=== PATIENT | male | born 1975 | race Caucasian/White ===

== ENCOUNTER 2020-12-16 03:23 | Emergency (ER) | payer OTHER, SELFPAY ==
[2020-12-16 03:29] VITALS: BP 147/93; PULSE 90; RESP 17; TEMP 36.8; O2SAT 97; BMI 35.7
--- NOTE | 2020-12-16 03:37 | ECG_ITS ---
[facility] Test Date: 2020-12-16 Pat Name: Richie Wan Department: Room: Gender: Male [employer] Flu[employer] Handler: : [id number] Requested By: Humble Burris Order Number: [id number] Viola MD: Chelo Taylor M.D. Measurements Intervals Peck Rate: 95 P: 43 NC: 149 QRS: 12 QRSD: 111 T: 25 QT: 349 QTc: 439 Interpretive Statements SINUS RHYTHM LOW QRS VOLTAGE IN PRECORDIAL LEADS [QRS DEFLECTION < 1.0 mV IN CHEST LEADS] MODERATE INTRAVENTRICULAR CONDUCTION DELAY [110+ ms QRS DURATION] Compared to ECG 11/02/2018 09:16:30 Intraventricular conduction delay now present Electronically Signed On 12-16-2020 18:38:07 CDT by Chelo Taylor M.D. [id number]
--- NOTE | 2020-12-16 03:37 | XRR_ITS ---
PROCEDURE INFORMATION: Exam: XR Chest Exam date and time: 12/16/2020 3:39 AM Age: 45 years old Clinical indication: Pain; Chest pressure; Additional info: Chest pain TECHNIQUE: Imaging protocol: XR of the chest. Views: 1 view. COMPARISON: No relevant prior studies available. FINDINGS: Lungs: Unremarkable. No consolidation. Pleural spaces: Unremarkable. No pleural effusion. No pneumothorax. Heart/Mediastinum: Unremarkable. No cardiomegaly. Bones/joints: Unremarkable. XR/XR chest 1V portable [id number] IMPRESSION: No acute findings.
[2020-12-16 03:59] VITALS: BP 157/95; PULSE 87; RESP 19; O2SAT 96
[2020-12-16 04:21] LABS: Basophils % 0.3 %; Eosinophils # 0.2 10^3/uL (0.0-0.8); Eosinophils % 3.1 %; Hematocrit 45.6 % (42.0-52.0); Lymphocytes # 2.7 10^3/uL (0.8-4.8); Lymphocytes % 37.7 %; Mean Corpuscular HGB Conc 32.9 g/dL (30.0-36.0); Mean Corpuscular Hemoglobin 27.2 pg (28.0-34.0); Mean Corpuscular Volume 82.8 fL (80-94); Mean Platelet Volume 10.1 fL (7.4-10.4); Monocytes # 0.7 10^3/uL (0.2-0.9); Monocytes % 10.3 %; Neutrophils # 3.49 10^3/uL (1.8-7.7); Neutrophils % 48.5 %; Nucleated Red Blood Cells % 0 %; Platelet Count 179 10^3/cmm (130-400); Red Blood Count 5.51 10^6/uL (4.1-5.3); Red Cell Distribution Width 12.9 % (12.1-15.1); White Blood Count 7.2 10^3/uL (4.0-10.0)
[2020-12-16 04:33] VITALS: BP 123/93; PULSE 81; RESP 17; O2SAT 95
[2020-12-16 04:40] LABS: Troponin(5th) Baseline 6 ng/L (0-15)
[2020-12-16 04:42] LABS: Alanine Aminotransferase 36 U/L (0-41); Albumin Level 3.8 g/dL (3.5-5.2); Alkaline Phosphatase 91 IU/L (40-130); Anion Gap 12.9 (5-19); Aspartate Amino Transferase 28 U/L (0-40); Blood Urea Nitrogen 15 mg/dL (6-20); Calcium 8.2 mg/dL (8.5-10.5); Carbon Dioxide 25 mmol/L (22-29); Chloride 107 mmol/L (98-107); Globulin 2.1 g/dL (1.3-4.6); Glomerular Filtration Rate 71.8 mL/min (90-130); Glucose 134 mg/dL (65-115); Osmolality Calculated 295 mOsm/kg (285-295); Potassium 3.9 mmol/L (3.5-5.1); Sodium 141 mmol/L (136-145); Total Bilirubin 0.4 mg/dL (0.15-1.2); Total Protein 5.9 g/dL (6.6-8.7)
[2020-12-16 05:00] VITALS: BP 125/77; PULSE 81; RESP 17; O2SAT 95
--- NOTE | 2020-12-16 05:19 | W.ED.GENADLT ---
HPI - General Adult General: Chief complaint: General Medical Stated complaint: PAIN IN UPPER BACK AND SHOULDERS Time Seen by Provider: 12/16/20 03:37 History of Present Illness: HPI narrative: Patient is a well-appearing 45-year-old male seen for palpitations, left neck, jaw, and arm paresthesia, and hypertension which he experienced shortly after having sexual intercourse with his partner. He states that he has felt the same way several times when having sex over the last 4 years, but also he is awoken in a panic state having palpitations, tachycardia, and hypertension as well as sweating in the middle the night. He admits to having a high stress job and feeling anxiety from time to time. He has no history of heart disease, hypertension, diabetes, hypercholesterolemia, and does not have risk factors such as smoking or heavy drinking. At the time of my exam, his symptoms have all relieved spontaneously. He has no other acute complaints. Review of Systems General: Reports: 10 or more systems reviewed and unremarkable except in HPI and below Physical Exam Const: COMMON NORMALS: no acute distress, patient oriented x3 and alert HENMT: COMMON NORMALS: normocephalic and atraumatic HEAD & SCALP: normocephalic and atraumatic Eye: COMMON NORMALS: Equal, round and reactive pupils present, EOMs intact bilaterally and no scleral icterus PUPIL: Yes Equal, round and reactive pupils present Resp: COMMON NORMALS: normal respiratory effort and No retractions Cardio: COMMON NORMALS: regular rate, regular rhythm and No murmurs present (Cardio) RATE: regular rate RHYTHM: regular rhythm GI: COMMON NORMALS: Normal to inspection, nondistended, normoactive bowel sounds present, Soft to palpation and non-tender PALPATION: Yes Soft to palpation Neuro: COMMON NORMALS: patient oriented x3 SENSORIUM/ORIENTATION: Yes alert Skin: COMMON NORMALS: no rashes or lesions noted GENERAL SKIN EXAM: no rashes or lesions noted Course Vital Signs: Vital signs: Vital Signs Temperature 98.2 F 12/16/20 03:29 Pulse Rate 81 12/16/20 05:00 Respiratory Rate 17 12/16/20 05:00 Blood Pressure 125/77 12/16/20 05:00 Pulse Oximetry 95 12/16/20 05:00 MDM - General Adult MDM Narrative: Medical decision making narrative: By the time I was able to evaluate the patient, he was symptom-free and had completely stable vital signs. EKG shows no acute process. Troponin, CBC, CMP, chest x-ray are all unremarkable. I suspect there is a component of anxiety contributing to his symptoms and advised that he follow-up with primary care to discuss whether there are any medications which could help him should this symptom recur. He admits that he is at very high stress job and sometimes feels an inordinate amount of anxiety as a result. He will be discharged home in stable and improved condition with follow-up to primary care as needed. He knows he is always welcome back in the emergency department if his symptoms get worse before outpatient follow-up. Lab Data: Labs: Lab Results 12/16/20 12/16/20 12/16/20 Range/Units 04:08 04:08 04:08 WBC 7.2 (4.0-10.0) 10^3/ uL RBC 5.51 H (4.1-5.3) 10^6/u L Hgb 15.0 (11.7-16.6) g/dL Hct 45.6 (42.0-52.0) % MCV 82.8 (80-94) fL MCH 27.2 L (28.0-34.0) pg MCHC 32.9 (30.0-36.0) g/dL RDW 12.9 (12.1-15.1) % Plt Count 179 (130-400) 10^3/c mm MPV 10.1 (7.4-10.4) fL Neut % (Auto) 48.5 % Lymph % (Auto) 37.7 % [place] % (Auto) 10.3 % Eos % (Auto) 3.1 % Baso % (Auto) 0.3 % Neut # (Auto) 3.49 (1.8-7.7) 10^3/u L Lymph # (Auto) 2.7 (0.8-4.8) 10^3/u L [place] # (Auto) 0.7 (0.2-0.9) 10^3/u L Eos # (Auto) 0.2 (0.0-0.8) 10^3/u L Baso # (Auto) 0.0 (0.0-0.1) 10^3/u L Nucleated RBC % (a uto) 0 % Nucleated RBCs # 0.0 /100WBC Sodium 141 (136-145) mmol/L Potassium 3.9 (3.5-5.1) mmol/L Chloride 107 (98-107) mmol/L Carbon Dioxide 25 (22-29) mmol/L Anion Gap 12.9 (5-19) BUN 15 (6-20) mg/dL Creatinine 1.1 (0.7-1.2) mg/dL GFR Calculation 71.8 L (90-130) mL/min Glucose 134 H (65-115) mg/dL Calculated Osmolal ity 295 (285-295) mOsm/k g Calcium 8.2 L (8.5-10.5) mg/dL Total Bilirubin 0.4 (0.15-1.2) mg/dL AST 28 (0-40) U/L ALT 36 (0-41) U/L Alkaline Phosphata se 91 (40-130) IU/L Troponin T Baselin e 6 (0-15) ng/L Total Protein 5.9 L (6.6-8.7) g/dL Albumin 3.8 (3.5-5.2) g/dL Globulin 2.1 (1.3-4.6) g/dL EKG Data^: EKG 1: Interpretation: Time?0355?normal sinus rhythm, rate of 95, no ST elevation or depression, intervals within normal limits. Normal axis. QTC equals 401 and TN interval is 149 ms Computer generated interpretation: Chest X-Ray 12/16/20 03:37 IMPRESSION: No acute findings. Discharge Plan Discharge Patient Disposition: Home Clinical Impression: Palpitations Condition: Stable Discharge Orders: Discharge ED (Routine); Ordered 12/16/20 Ordered By: Humble Burris Referrals: Kari Chacon MD [Primary Care Provider] - Discharge Diet: Usual diet Discharge Activity: Resume usual activity Patient Instructions: Opioid Safety Activity Restrictions/Additional Instructions: Your EKG, chest x-ray, and blood tests were all reassuring today. Troponin test was negative. I believe that a component of your symptoms tonight can be contributed to anxiety. It may be helpful to speak with your primary care physician about possible medications that can help you feel this way. Coding Level of Care Code ED Biologics Specialist for Edson Ortega
[2020-12-16 05:27] VITALS: BP 125/77; PULSE 76; RESP 16; TEMP 36.8; O2SAT 95
== END 2020-12-16 05:29 | disposition home or self-care (01) ==
PROVIDERS: Emergency Provider Student in an Organized Health Care Education/Training Program; PCP Family Medicine
DX: R00.2 Palpitations (principal)
CPT/HCPCS: 71045; 80053; 84484; 85025; 93005; 99283

== ENCOUNTER → 2021-12-29 14:35 | Outpatient (BNVA) | payer OTHER, SELFPAY | PROVIDERS: PCP Family Medicine; Visit Provider Family Medicine | DX: S61.432A Puncture wound without foreign body of left hand, initial encounter (principal); X58.XXXA Exposure to other specified factors, initial encounter | CPT/HCPCS: 73130 ==

== ENCOUNTER 2022-07-14 06:17 | Day surgery (SDC) | payer OTHER, SELFPAY ==
[2022-07-12 13:52] VITALS: BMI 35.7
[2022-07-14 06:35] VITALS: BP 134/96; PULSE 80; RESP 18; TEMP 36.4; O2SAT 97
[2022-07-14] MEDS: sodium chloride 0.9% 1,000 ML 30 ML IV (06:43)
--- NOTE | 2022-07-14 07:57 | ANES.PREANE2 ---
Pre-Anesthetic Assessment Height/Weight: Height 1.73 m Weight 106.594 kg Temp Pulse Resp BP Pulse Ox O2 Del Method 97.5 F L 80 18 134/96 97 07/14/22 06:35 07/14/22 06:35 07/14/22 06:35 07/14/22 06:35 07/14/22 06:35 07/14/22 06:35 Preop Diagnosis: Rectal Pain Operation Date: 07/14/22 08:00 Proposed Procedures p Colonoscopy 91471,K62.89(Not Applicable) - Elroy Kelly DO Familial anesthetic complications: none Was Beta Garrett taken within 24 hours: N/A Was Clonidine taken within 24 hours: N/A Last intake: Intake Last Liquid Date 07/13/22 Last Liquid Time 22:20 Last Solid Date 07/12/22 Last Solid Time 19:00 Social Alcohol (1x week) and No tobacco Airway Submandibular: within normal limits Cervical ROM: within normal limits Mallampati: Class III Dentition: full History/ROS No significant history except as noted Pulmonary None reported CV/HEM None reported None reported Hepatic None reported GI None reported Metabolic None reported Musc/skel None reported Neuropsych None reported Anesthetic Plan ASA status: 1 Anesthesia: MAC Medications/Allergies Home Medications Medication Instructions Recorded Confirmed Last Taken Type metronidazole 500 mg tablet 250 mg PO TID 2 weeks #42 tabs 07/14/22 Unknown Rx Allergies Allergy/AdvReac Type Severity Reaction Status Date / Time No Known Allergies Allergy Verified 07/14/22 06:35 Current Medications Generic Name Dose Route Start Last Admin Trade Name Freq PRN Reason Stop Dose Admin Sodium Chloride 1,000 mls @ 30 mls/hr 07/14/22 06:30 07/14/22 06:43 Sodium Chloride 0.9% IV 07/15/22 06:29 30 mls/hr .Q24H ARIEL Administration PFSH Anesthesia Social History Smoking and tobacco status: never smoked Alcohol intake: current Alcohol intake frequency: holidays/special occasions only Data Anesthesia Cardiac Studies: No Data to Display
--- NOTE | 2022-07-14 08:11 | PM.HP ---
Providers/Chief Complaint Primary Care Provider: Kari Chacon MD Chief Complaint: K62.89 History of Present Illness Richie Wan is a 46 year old male with dull rectal pain for the last 2 months who presents for colonoscopy. I reviewed Dr. Joseph's note. Patient denies any abdominal pain, nausea, emesis, hematochezia and/or melena. Denies family history of colon cancer Review of Systems General: Reports: 10 or more systems reviewed and unremarkable except in HPI and below Medications/Allergies Home Medications Medication Instructions Recorded Confirmed Last Taken Type No Known Home Medications 06/08/22 07/14/22 Unknown History Allergies Allergy/AdvReac Type Severity Reaction Status Date / Time No Known Allergies Allergy Verified 07/14/22 06:35 PFSH Acute PFSH: Social History Smoking and tobacco status: never smoked Alcohol intake: current Alcohol intake frequency: holidays/special occasions only Vitals/I&O/Wt Last Vital Signs Temp 97.5 F L 07/14/22 06:35 Pulse 80 07/14/22 06:35 Resp 18 07/14/22 06:35 BP 134/96 07/14/22 06:35 Pulse Ox 97 07/14/22 06:35 O2 Del Method 07/14/22 06:35 Weight last 48 hrs Weight 235 lb Physical Exam Narrative: General : Patient is well developed , no acute distress, oriented x3 Head : Normal cephalic, a-traumatic. Ears : Pinnae and external canal are normal. Hearing is normal. Eyes : PERRLA, Sclera and injection are normal. No conjunctival discharge. Nose : Mucous membranes are without erythema. Throat : buccal mucosa is normal, gums are without significant recession or hypertrophy. Lungs : Equal chest rise bilaterally, no use of accessory muscles, trachea is midline. Cor : Rate and rhythm are normal. Abdomen : Soft, ND, NT, no g/r/m Extremities : No edema, no cyanosis or clubbing, dorsalis pedis pulses are present bilaterally, non-tender to palpation of calves. Upper extremities are normal bilaterally. Back : non-tender to palpation, no CVA tenderness. Neuro : CN II - XII intact, Upper and lower extremities have equal and full strength A&P Assessment and plan (1) Rectal pain: Plan Colonoscopy The risks and benefits of the procedure, including bleeding, infection, intestinal perforation requiring surgery, missed lesion were explained to the patient. The patient is understanding of the risks and wishes to proceed. Attestations Medical Necessity Statement*: Home Coding Level of Care Code Acute Consultant Nurse for [facility] Diagnoses Rectal pain K62.89
[2022-07-14 08:30] VITALS: BP 107/79; PULSE 89; RESP 16; TEMP 36.3; O2SAT 94
[2022-07-14 08:42] VITALS: BP 113/80; PULSE 78; RESP 16; O2SAT 93
--- NOTE | 2022-07-14 15:18 | ANE.PACU2 ---
Inpatient post-anesthesia follow up: Airway intact: Yes Vital signs: Temperature 97.4 F Pulse Rate 78 Respiratory Rate 16 Blood Pressure 113/80 Pulse Oximetry 93 Oxygen Delivery Me thod Room Air Oxygen Flow Rate Fraction of Inspir ed Oxygen Hydration adequate: Yes Nausea and vomiting: No Pain level: 2 Mental status: Baseline
== END 2022-07-14 09:18 | disposition home or self-care (01) ==
PROVIDERS: PCP Family Medicine; Visit Provider Surgery
PROC: 0DJD8ZZ Inspection of Lower Intestinal Tract, Via Natural or Artificial Opening Endoscopic (ICD-10-PCS; CPT 45378; principal; 2022-07-14 08:00)
DX: K62.89 Other specified diseases of anus and rectum (principal)
CPT/HCPCS: 45380; 88305; J2704; J7030

== ENCOUNTER 2023-02-15 13:57 | Outpatient (CLI) | payer OTHER, SELFPAY ==
--- NOTE | 2023-02-15 14:11 | XR_ITS ---
WS: [id number] EXAMINATION: XR cervical spine 3V* [id number] Cervical spine 3 views REASON FOR EXAM: bilateral paresthesias to hands COMPARISON: None available. FINDINGS: There is no sign of acute fracture or subluxation. Vertebral body heights and intervertebral disc sp aces are maintained. The cervical bony alignment and osseous densities appear normal. There is no p revertebral soft tissue change. XR/XR cervical spine 3V* [id number] IMPRESSION: No acute osseous abnormality.
== END 2023-02-15 13:58 | disposition home or self-care (01) ==
PROVIDERS: PCP Family Medicine; Visit Provider Family Medicine
DX: M47.812 Spondylosis without myelopathy or radiculopathy, cervical region (principal); G62.9 Polyneuropathy, unspecified
CPT/HCPCS: 72040; 80053; 82607; 82746; 84443; 85025; 85651